=== PATIENT | male | born 1995 | race Caucasian/White ===

== ENCOUNTER 2022-12-25 14:59 | Emergency (ER) | payer BC ==
[2022-12-25] MEDS ORDERED: Lidocaine 1% PF 2 ML SDV INJECT ONE (15:03)
[2022-12-25] MEDS ORDERED: Diphtheria,Pertussis(Acell),Tetanus Vaccine 0.5 ML Syringe IM ONE (15:03)
== END 2022-12-25 16:25 | disposition home or self-care (01) ==
LOC: MW.ED 14:59
DX: S61.213A Laceration without foreign body of left middle finger without damage to nail, initial encounter (principal); Z23 Encounter for immunization; W26.0XXA Contact with knife, initial encounter
CPT/HCPCS: 12001; 90471; 90715; 99282-25; 99283; J3490